=== PATIENT | female | born 1945 | race Caucasian/White ===

== ENCOUNTER 2019-03-20 03:41 | Inpatient (IN) | payer MEDICARE, OTHER ==
[2019-03-20 05:15] VITALS: BP 159/74
[2019-03-20 07:00] VITALS: BP 140/58
[2019-03-20] MEDS ORDERED: ATOR40TA59 PO (07:04)
[2019-03-20] MEDS ORDERED: RANI150T2 PO (07:04)
[2019-03-20] MEDS ORDERED: CARV25TA2 PO (07:04)
[2019-03-20] MEDS ORDERED: MULT1TAB77 PO (07:30)
[2019-03-20] MEDS ORDERED: MAGN400O7 PO (07:30)
[2019-03-20] MEDS ORDERED: ACET325T9 PO (07:30)
[2019-03-20] MEDS ORDERED: POLY15DR20 OP (07:30)
[2019-03-20] MEDS ORDERED: CARB15DR3 EACHEYE (07:30)
[2019-03-20] MEDS ORDERED: LEVE10007 PO (07:30)
[2019-03-20] MEDS ORDERED: LISI10TA2 PO (07:30)
[2019-03-20] MEDS ORDERED: LOPE2CAP88 PO ×2 (07:30)
[2019-03-20] MEDS ORDERED: MAG355OR12 PO (07:30)
[2019-03-20 11:00] VITALS: BP 115/55
--- NOTE | 2019-03-20 11:18 | NUR ---
Spoke with daughter Rylee this morning via telephone; she lives in [place]. She states that the patient has a known pancreatic mass that is currently being treated by Dr. Martinez at [facility]. She also stated that she would like her mother transferred back there for care and to fax all her records to Dr. Martinez. I will give this information to the doctor and will continue to monitor the patient.
--- NOTE | 2019-03-20 14:09 | SSS ---
ADMIT DATE: HISTORY OF PRESENT ILLNESS: The patient is a 74-year-old female patient, a resident at [facility], who apparently was brought by the emergency medical service personnel to Emergency Room of [facility] with a complaint of nausea, vomiting and left side abdominal pain. She denied any fever, chill. Denied any trauma. Denies any known sick contacts. Denied any constipation. In fact, she has had a good bowel movement approximately 3 hours ago prior to arrival to the Emergency Room. She was extensively investigated in the Emergency Room and apparently her lab work showed some abnormal liver enzymes with elevated AST, ALT, alkaline phosphatase is slightly elevated as well as total bilirubin was normal and urinalysis was unremarkable. He has had a CT scan of the abdomen without contrast, which basically showed that the patient has a 12 cm mass within the upper abdomen which arises from the pancreatic head. Basic morphology is not typical of pancreatic adenocarcinoma, though this cannot be excluded metastatic disease to the pancreas in the setting of remote renal cell carcinoma versus other primary pancreatic neoplasm abdomen consideration has also no focal recurrence, status post left nephrectomy, cholelithiasis, dense nodule in the right kidney may represent proteinaceous cyst, but indeterminate. Again, CT or MRI with or without contrast could further evaluate. She has chronic stable rim calcified 1.2 cm splenic artery aneurysm distally. We spoke with her daughter, Sagar Liu and she apparently stated that she has had this tumor and she follows with Dr. Richey, her oncologist at [facility]. By the time she arrived to [facility], she was fine. She has had no further episodes of nausea or vomiting. She has no abdominal pain. We actually allowed her to eat and she tolerated her food without any problem. PAST MEDICAL HISTORY: Significant for aortic valve calcification and brain metastases, status post resection. She has chronic combined systolic and diastolic congestive heart failure, chronic kidney disease, coronary artery disease involving igiugig coronary arteries, igiugig heart without angina pectoris. She has cerebrovascular disease, essential hypertension, hemorrhagic stroke following whole brain radiation, has ischemic cardiomyopathy, left-sided lacunar infarction, mixed hyperlipidemia, nonischemic cardiomyopathy, nonalcoholic steatohepatitis, non-intractable epilepsy with complex partial seizures. She has obesity, prediabetes, primary malignancy of the left kidney with metastasis and kidney to other sites. She has renal cell carcinoma of the left kidney, thrombocytopenia and visual impairment. PAST SURGICAL HISTORY: Significant for appendectomy. She has a brain surgery including left parietal craniotomy, metastasis from renal cell cancer removed. Cardiac catheterization showed no significant coronary artery disease. She has cataract extraction bilaterally, EGD with endoscopic ultrasound and fine needle biopsy of the esophagus. She has esophagogastroduodenoscopy with endoscopic ultrasound and fine needle biopsy. She had excision of bilateral cataract. She has left-sided nephrectomy. FAMILY HISTORY: Mother is positive for osteoporosis and dementia. Father is positive for emphysema and throat cancer as well as heart disease. SOCIAL HISTORY: She is , currently resides at [facility]. She has never smoked. Drinks alcohol occasionally. Her daughter, Rylee is her surrogate CATHIE and her code status is full. ALLERGIES: SHE IS ALLERGIC TO ASPIRIN AND SULFA DRUGS. MEDICATIONS: She is currently on the following medication, atorvastatin, calcium 40 mg at bedtime, carvedilol 25 mg twice a day, lisinopril 10 mg daily, acetaminophen 650 mg every 4 hours as needed and Tylenol 650 mg every 4 hours, levetiracetam 1000 mg twice a day, carboxymethylcellulose, lysine, Refresh optic eyedrops 1 drop each eye twice a day, polyvinyl alcohol 1 drop to both eyes every 4 hours, Maalox 15 mL every 4 hours as needed, loperamide 2 mg 3-4 times a day as needed. She is on milk of magnesia 30 mL p.o. daily p.r.n. for constipation, ranitidine 150 mg p.o. daily, multivitamin with folic acid 400 mcg once a day. REVIEW OF SYSTEMS: As per history of present illness. PHYSICAL EXAMINATION: GENERAL: On arrival to [facility], the patient was resting slightly propped up in bed, in no apparent respiratory distress. She was somewhat pale, but no jaundice, cyanosis or thyromegaly. No jugular venous distention. No lower limb edema. VITAL SIGNS: Her heart rate was 70, blood pressure 115/55, temperature was 98, respiratory rate was 16, and oxygen saturation was 96%. HEAD, EYES, EARS, NOSE AND THROAT: Showed normocephalic, atraumatic. NECK: Supple. HEART: Showed normal first and second heart sounds. No gallop or murmur. CHEST: Clear to auscultation. No crepitation or rhonchi. ABDOMEN: Distended, soft, nontender. No guarding or rigidity. No organomegaly. All hernial orifices intact. Bowel sounds normal. NEUROLOGIC: She is awake, alert, does have some form of expressive aphasia, left-sided residual weakness. LABORATORY DATA: Her lab work showed that her white cell count was 8900, hemoglobin 14, hematocrit 41, MCV 87, and platelet count of 86,000. Her chemistry showed a serum sodium 139, potassium 3.9, chloride 103, bicarbonate 31, anion gap of 5, BUN 18, creatinine 1.1, estimated GFR was 48 mL per minute. Her glucose was 156. Lactic acid was 1.3, calcium was 9.2, magnesium 2. Total bilirubin is normal. AST and ALT elevated. Alkaline phosphatase is slightly elevated. Her total protein was 6.9, albumin was 3.8. Lipase was 135. Her prothrombin time was 10.4, INR of 1, aPTT was 24, and urinalysis was essentially unremarkable. I have received medical record from Dr. Hair's office and apparently had a CT angio of the chest, abdomen and pelvis dating back to 05/13/2017 which showed that she has unchanged numerous enhancing peripancreatic enhancing masses, distal pancreatic ductal dilatation in the pancreatic body and tail. She has left nephrectomy, unchanged left renal bed nodules. He has also an MRI and MRCP done on 10/19/2018, which showed that the patient has multiple pancreatic masses as described and he has also extrahepatic bile duct is narrowed, but the large pancreatic head mass without more proximal extrahepatic bile duct dilatation. There was a trace intrahepatic bile duct, dilatation of the left hepatic lobe, multiple enhancing right renal masses. His MRI of the brain done in 10/2018 did not show any acute infarct or hemorrhage. It showed stable finding when compared to 09/2018, chronic left basal ganglia lacunar infarct. The PET scan done in 11/02/2018 showed that he has stable hypermetabolic mass lesion involving the pancreatic head. Autumn hepatis is stable. Several mildly hypermetabolic pancreatic masses finding, but with history of metastatic renal cell carcinoma, similar to prior PET scan. Similar appearance of enlarged thyroid with multiple bilateral nodules, chronic mild increased metabolic activity corresponding to the left posterior thyroid nodule. PLAN: Given that all these findings has been documented and she follows with Dr. Richey, the oncologist, a decision was made to discharge her back to assisted living to follow with her Dr. Richey as her daughter has made an appointment for her to be seen there. CULLEN HORNER MD DR: SHU/savita JOB#: [id number] / [id number]
--- NOTE | 2019-03-20 15:27 | NUR ---
Discharge Note: MICHAEL GRANADO Discharge instructions and discharge home medications reviewed with Other facility and a copy given. All questions have been answered and understanding verbalized. The following instructions and handouts were given: discharge instructions. Discontinued lines and drains: Peripheral IV discontinued intact. Patient discharged to Assisted Living with [facility] transport Personnel via Wheelchair
== END 2019-03-20 15:29 | disposition home or self-care (01) | DRG 439 ==
LOC: 5 NORTH 05:26
PROVIDERS: ADMIT Internal Medicine; ATTEND Internal Medicine
DX: K86.9 Disease of pancreas, unspecified (principal); I13.0 Hypertensive heart and chronic kidney disease with heart failure and stage 1 through stage 4 chronic kidney disease, or unspecified chronic kidney disease; I50.42 Chronic combined systolic (congestive) and diastolic (congestive) heart failure; E78.2 Mixed hyperlipidemia; G40.909 Epilepsy, unspecified, not intractable, without status epilepticus; I25.5 Ischemic cardiomyopathy; E66.9 Obesity, unspecified; I25.10 Atherosclerotic heart disease of native coronary artery without angina pectoris; I72.8 Aneurysm of other specified arteries; N18.9 Chronic kidney disease, unspecified; Z80.8 Family history of malignant neoplasm of other organs or systems; Z82.5 Family history of asthma and other chronic lower respiratory diseases; Z82.62 Family history of osteoporosis; Z85.528 Personal history of other malignant neoplasm of kidney; Z86.73 Personal history of transient ischemic attack (TIA), and cerebral infarction without residual deficits; Z90.5 Acquired absence of kidney; Z88.2 Allergy status to sulfonamides; Z88.8 Allergy status to other drugs, medicaments and biological substances
CPT/HCPCS: G0378